=== PATIENT | male | born 1940 | race Caucasian/White ===

== ENCOUNTER 2016-10-23 13:58 | Outpatient (CLI) | payer OTHER ==
--- NOTE | 2016-10-23 16:23 | DIAGNOSTIC IMAGING REPORT ---
PROCEDURE: CT PELVIS W/WO CONTRAST INDICATION: HEMATOSPERMIA, initial encounter TECHNIQUE: Axial scans through the pelvis before and after 150s ml Isovue 300 with coronal and sagittal re-formations. COMPARISON: None. FINDINGS: No evidence of urinary calculi. Normal enhancement and excretion of the kidneys. Enlarged prostate measures 7.2 x 5.6 x 5.2 cm, protruding within the bladder lumen. There is no pelvic mass, adenopathy or free fluid. Small bilateral fat filled inguinal hernias. Gallbladder, pancreas, adrenal glands and visualized liver and spleen are unremarkable. Normal appendix. Moderate atherosclerosis of the aorta and iliac vessels. Bilateral L4 spondylolysis with grade 1 L4-5 anterolisthesis. IMPRESSION: 1. Markedly enlarged prostate
== END 2016-10-23 23:00 ==
LOC: CT SRH 13:58
DX: R36.1 Hematospermia (principal); N40.0 Benign prostatic hyperplasia without lower urinary tract symptoms